=== PATIENT | female | born 1975 | race American Indian/Alaskan Native ===

== ENCOUNTER 2018-08-26 21:22 | Inpatient (IN) | payer BC ==
[2018-08-26 22:22] VITALS: BMI 23.5
[2018-08-26 23:21] LABS: BASO % 0.6 % (0.0-2.0); EOS % 0.8 % (0.0-4.0); HEMOGLOBIN 11.3 g/dL (12.0-16.0); LYMPH # 1.3 K/uL (1.0-4.3); LYMPH % 25.9 % (20.0-40.0); MEAN CELL VOLUME 78.6 fl (81.0-99.0); MEAN CORPUSCULAR HEMOGLOBIN 25.3 pg (27.0-31.0); MEAN CORPUSCULAR HGB CONC 32.2 g/dL (33.0-37.0); MEAN PLATELET VOLUME 8.8 fl (7.2-11.7); MONO # 0.7 K/uL (0.0-0.8); NEUT % 58.7 % (50.0-75.0); NRBC % 0.1 % (0.0-0.0); RBC 4.45 Mil/uL (3.80-5.20); RED CELL DISTRIBUTION WIDTH 14.4 % (11.5-14.5); WHITE BLOOD COUNT 5.2 K/uL (4.8-10.8)
[2018-08-26 23:26] LABS: INR 1.2; PROTHROMBIN TIME 13.4 Seconds (9.8-13.1)
[2018-08-26] MEDS ORDERED: Lactated Ringer's 1,000 ML IV STA (23:26)
[2018-08-26 23:33] LABS: PARTIAL THROMBOPLASTIN TIME 30.7 Seconds (25.6-37.1)
[2018-08-26 23:37] LABS: ALB/GLOB RATIO 1.4 (1.0-2.1); ALBUMIN 4.4 g/dL (3.5-5.0); ALT/SGPT 21 U/L (9-52); AST/SGOT 22 U/L (14-36); BLOOD UREA NITROGEN 13 mg/dl (7-17); CALCIUM 8.8 mg/dL (8.4-10.2); GFR NON-AFRICAN AMERICAN > 60
[2018-08-26 23:45] LABS: LIPASE 3063 U/L (23-300)
--- NOTE | 2018-08-26 23:59 | ED PDOC ---
HPI: Abdomen Time Seen by Provider: 08/26/18 22:44 Chief Complaint (Nursing): Abdominal Pain Chief Complaint (Provider): abdominal pain History Per: Patient History/Exam Limitations: no limitations Onset/Duration Of Symptoms: Days (x1 week), Worse Since (onset) Current Symptoms Are (Timing): Constant Location Of Pain/Discomfort: Epigastric Associated Symptoms: denies: Nausea, Vomiting, Diarrhea, Constipation, Urinary Symptoms Additional Complaint(s): Annamarie Johnson is a 43 year old female, with no significant past medical history, who presents to the emergency department complaining of a constant abdominal pain ongoing for a week. Patient describes pain as epigastric, non- radiating and worsening since onset. She was seen at [facility] today, she had blood work done and an ultrasound was performed. Patient was called and was told to go to the ER for abnormal blood work and ultrasound. Blood work demonstrated elevated Lipase of 717 and Amylase of 296 but otherwise normal LFTs, also a mild anemia but no leukocytosis. Ultrasound demonstrated a mild dilatation of the pancreal duct and recommend MRCP. Patient reports taking Omeprazole today but pain has been the same. She denies any fever, chills, nausea, vomit, diarrhea, constipation, urinary symptoms or other medical complaints. PMD: None provided. Past Medical History Reviewed: Historical Data, Nursing Documentation, Vital Signs Vital Signs: Last Vital Signs Temp 99.0 F 08/26/18 22:21 Pulse 91 H 08/26/18 22:21 Resp 16 08/26/18 22:21 BP 129/90 08/26/18 22:21 Pulse Ox 99 08/26/18 22:21 Primary Care Provider: Doctor,Conversion - Medical History PMH: No Chronic Diseases - Surgical History Surgical History: No Surg Hx - Family History Family History: States: Unknown Family Hx - Social History Current smoker - smoking cessation education provided: No Alcohol: Other (x2 per year) Drugs: Denies - Allergies Allergies/Adverse Reactions: Allergies Allergy/AdvReac Type Severity Reaction Status Date / Time shrimp Allergy RASH Verified 08/26/18 22:20 Review of Systems ROS Statement: Except As Marked, All Systems Reviewed And Found Negative Gastrointestinal: Positive for: Abdominal Pain. Negative for: Nausea, Vomiting, Diarrhea, Constipation Genitourinary Female: Negative for: Dysuria, Frequency, Incontinence Physical Exam - Reviewed Nursing Documentation Reviewed: Yes Vital Signs Reviewed: Yes - Physical Exam Appears: Positive for: Non-toxic, In Acute Distress (mild painful) Head Exam: Positive for: ATRAUMATIC, NORMAL INSPECTION, NORMOCEPHALIC Skin: Positive for: Normal Color, Warm, Dry Eye Exam: Positive for: Normal appearance, EOMI, PERRL Neck: Positive for: Normal, Painless ROM Gastrointestinal/Abdominal: Positive for: Soft, Tenderness (epigastric tenderness to palpation). Negative for: Mass, Distended, Guarding, Rebound Extremity: Positive for: Normal ROM Neurological/Psych: Positive for: Awake, Alert, Normal Tone, Oriented - Laboratory Results Result Diagrams: 08/27/18 11:20 08/27/18 11:20 Lab Results: PT 13.4 Seconds (9.8-13.1) H 08/26/18 23:17 INR 1.2 08/26/18 23:17 APTT 30.7 Seconds (25.6-37.1) 08/26/18 23:17 Total Bilirubin 0.4 mg/dl (0.2-1.3) 08/26/18 23:17 AST 22 U/L (14-36) 08/26/18 23:17 ALT 21 U/L (9-52) 08/26/18 23:17 Alkaline Phosphatase 46 U/L (38-126) 08/26/18 23:17 Total Protein 7.5 G/DL (6.3-8.2) 08/26/18 23:17 Albumin 4.4 g/dL (3.5-5.0) 08/26/18 23:17 Globulin 3.1 gm/dL (2.2-3.9) 08/26/18 23:17 Albumin/Globulin Ratio 1.4 (1.0-2.1) 08/26/18 23:17 Lipase 3063 U/L (23-300) H 08/26/18 23:17 - ECG O2 Sat by Pulse Oximetry: 99 (RA) Pulse Ox Interpretation: Normal Medical Decision Making Medical Decision Making: Time: 22:44 Initial Impression: Pancreatitis Initial Plan: --CMP --Lact Acid, Plasma --LDH --Lipase --Urine dipstick --CBC w/ differential --PTT --PT --MRCP and ABD w/wo contrast [MRI] --Lactated Ringer's 1,000 ml IV 150 mls/hr --Reevaluation 23:00 -Discussed case with Dr. Churchill, GI section hand helper, who recommends aggressive IV fluid hydration, repeat labs, PO status and MRCP for the morning when he will come see patient. -Discussed with Dr. Candelario, medical services, for hospitalization and plan of case. Scribe Attestation: Documented by Vikki Randall, acting as a scribe for Cecelia Tong MD. Provider Scribe Attestation: All medical record entries made by the Scribe were at my direction and personally dictated by me. I have reviewed the chart and agree that the record accurately reflects my personal performance of the history, physical exam, medical decision making, and the department course for this patient. I have also personally directed, reviewed, and agree with the discharge instructions and disposition. Disposition - Clinical Impression Clinical Impression: Pancreatitis, acute Counseled Patient/Family Regarding: Studies Performed, Diagnosis - Disposition Disposition Time: 23:00 Condition: FAIR - Pt Status Changed To: Hospital Disposition Of: Observation - POA Present On Arrival: None
[2018-08-27] MEDS: Lactated Ringer's 1,000 ML IV SCH ×3 (06:44→20:37)
[2018-08-27] MEDS ORDERED: Gadodiamide 287 MG/ML VIAL (15ML) IV ONE (07:25)
[2018-08-27] MEDS ORDERED: Sodium Chloride 0.9% 50 ML IV ONE (07:25)
[2018-08-27] MEDS: Enoxaparin 40 mg Syringe SC SCH (09:23)
[2018-08-27] MEDS ORDERED: Barium Sulfate Susp 2.1% w/v, 2.0% w/w 450 mL Bottle PO ONE ×3 (12:26→12:48)
[2018-08-27 12:39] LABS: HEMOGLOBIN 11.4 g/dL (12.0-16.0); MEAN CELL VOLUME 78.1 fl (81.0-99.0); MEAN CORPUSCULAR HEMOGLOBIN 25.6 pg (27.0-31.0); MEAN CORPUSCULAR HGB CONC 32.7 g/dL (33.0-37.0); RBC 4.46 Mil/uL (3.80-5.20); RED CELL DISTRIBUTION WIDTH 14.3 % (11.5-14.5); WHITE BLOOD COUNT 5.2 K/uL (4.8-10.8)
[2018-08-27 12:51] LABS: ALB/GLOB RATIO 1.4 (1.0-2.1); ALBUMIN 4.3 g/dL (3.5-5.0); ALT/SGPT 19 U/L (9-52); AMYLASE 265 U/L (30-110); AST/SGOT 20 U/L (14-36); BLOOD UREA NITROGEN 7 mg/dl (7-17); GFR NON-AFRICAN AMERICAN > 60; HDL CHOLESTEROL 49 MG/DL (30-70); LIPASE 1818 U/L (23-300)
[2018-08-27 12:59] LABS: LDL CHOLESTEROL 75 mg/dL (0-129)
[2018-08-27 13:17] LABS: T3 0.978 nmol/L (1.49-2.60)
--- NOTE | 2018-08-27 16:33 | CT ---
Date of service: 08/27/2018 PROCEDURE: CT Abdomen and Pelvis with contrast HISTORY: pancreatitis COMPARISON: None. TECHNIQUE: Oral contrast only. Radiation dose: Total exam DLP = <inf_radiation_dlp> mGy-cm. This CT exam was performed using one or more of the following dose reduction techniques: Automated exposure control, adjustment of the mA and/or kV according to patient size, and/or use of iterative reconstruction technique. FINDINGS: LOWER THORAX: Unremarkable. LIVER: Unremarkable. No gross lesion or ductal dilatation. GALLBLADDER AND BILE DUCTS: Unremarkable. PANCREAS: Edematous pancreas poorly delineated from adjacent stomach and small bowel secondary to Betty of abdominal fat. Nondiagnostic study in the assessment necrotizing pancreatitis-or intravenous contrast was not administered. SPLEEN: Unremarkable. ADRENALS: Unremarkable. No mass. KIDNEYS AND URETERS: Unremarkable. No hydronephrosis. No solid mass. VASCULATURE: Unremarkable. No aortic aneurysm. No atherosclerotic calcification or mural plaque present. BOWEL: Unremarkable. No obstruction. No gross mural thickening. APPENDIX: A normal appendix is visualized in it's entirety. PERITONEUM: Trace fluid identified in the cul-de-sac. No free air. LYMPH NODES: Unremarkable. No enlarged lymph nodes. BLADDER: Unremarkable. REPRODUCTIVE: Enlarged anteverted uterus. BONES: No acute fracture. OTHER FINDINGS: None. IMPRESSION: Diffusely edematous pancreas. Limitations of the current examination: Paucity of intra-abdominal/retroperitoneal fat and the absence of intravenous contrast precludes meaningful assessment of the pancreas for necrotizing pancreatitis or 2 accurately evaluate the extent of these edematous changes
--- NOTE | 2018-08-27 19:26 | CON ---
DATE: 08/27/2018 HISTORY OF PRESENT ILLNESS: This is a very pleasant 43-year-old woman who presented to the emergency room yesterday complaining of severe progressive epigastric pain and discomfort since last Wednesday. She said she had never experienced anything like this in the past. It was not associated with any nausea, vomiting, fever or chills but it became progressively worse while she was on a business trip in [place], [place]. She arrived yesterday, came right to the emergency room complaining of this pain and discomfort. She had been seen in an outpatient setting where they had done an ultrasound which showed prominent pancreatic duct perhaps mildly dilated, otherwise an unremarkable ultrasound. She showed me the report on her phone. She also had lab work done as an outpatient which were unremarkable except for an elevated lipase level. She was admitted with a working diagnosis of pancreatitis. Overnight, she was kept n.p.o. She was started on lactated Ringers 150 mL an hour and this morning, she felt somewhat better. She did receive some pain medicine about three hours ago when I examined her, although she states she feels better than she had been. She had been constipated this week. MEDICATIONS: She was on no medications at home. ALLERGIES: SHE IS ALLERGIC TO SHRIMP. PAST MEDICAL HISTORY: Unremarkable. PAST SURGICAL HISTORY: Unremarkable. FAMILY HISTORY: Her mother gives a history of having had some type of pancreatic disease years ago. Family history is otherwise unremarkable. SOCIAL HISTORY: She denies any alcohol, tobacco, or drug use. PHYSICAL EXAMINATION: GENERAL: She is a well-developed, well-nourished black woman, awake, alert, and oriented x3, in no acute distress presently. She is nontoxic appearing. VITAL SIGNS: Stable. ABDOMEN: Soft with good bowel sounds. It is nontender to deep palpation nor distended. She states if I had tried to examine her yesterday in that manner, she would have been having severe pain and discomfort, so this is an improvement. LABORATORY DATA: Her laboratories here in the hospital today are all unremarkable except for a lipase which is reported as being 3063. The ultrasound is as per the HPI. IMPRESSION AND PLAN: A 43-year-old black woman presents with a case of pancreatitis of unclear etiology as she has no alcohol history and no known history of gallstones. Recent ultrasound was unremarkable in that regards. We had ordered an MRCP for today; however, because of her claustrophobia, it was unable to be done and she is resistant to do that again. I offered to premedicate her but she seems very anxious and nervous about trying to do it and prefers not to do it. I wanted to order a CAT scan of the abdomen and pelvis with p.o. and IV contrast to evaluate the pancreatic duct to find any abnormalities; however, SHE IS ALLERGIC TO SHRIMP. Therefore, at this point in time, we will simply continue with the present care, order the CAT scan of the abdomen and pelvis with only oral contrast, hopefully with pancreatic protocol, to get a good look at the pancreas as best as possible and then follow along with her. Repeat the lipase in the morning as well. If the lipase has improved and she is clinically improved, then perhaps we do not have to pursue the MRCP and this would be an idiopathic type of pancreatitis. If , however, she continues to deteriorate, we might have to premedicate her and get that MRCP to look for any underlying abnormalities. Certainly, the possibility includes pancreas divisum as a possible underlying cause of this pancreatitis and her abdominal pain, but we will follow along with you. Alonzo Churchill MD
--- NOTE | 2018-08-27 19:48 | HP ---
CHIEF COMPLAINT: Abdominal pain. HISTORY OF PRESENT ILLNESS: This is a 43-year-old female without significant past medical history, who was having abdominal pain for about one-week for which the patient went to an urgent care center and had some blood test done which resulted in lipase of 717 and amylase of 296, so the patient was sent to emergency room and was admitted for further management. REVIEW OF SYSTEMS: At this time is positive for abdominal pain. Review of system otherwise is negative for headache, dizziness, syncope, loss of consciousness, chest pain, shortness of breath, nausea, vomiting, diarrhea, constipation, anemia, joint or extremity pain. Review of systems of all other organ system is unremarkable. PAST MEDICAL HISTORY: Unremarkable. PAST SURGICAL HISTORY: Unremarkable. PERSONAL HISTORY: The patient is currently nonsmoker, nondrinker. No substance abuse. MEDICATIONS: The patient is not on any medications. ALLERGIES: THE PATIENT IS NOT ALLERGIC TO ANY MEDICATION, BUT HE IS ALLERGIC TO SHRIMP. FAMILY HISTORY: Noncontributory. PHYSICAL EXAMINATION: GENERAL: A well-built, well-nourished 43-year-old female in no acute distress. VITAL SIGNS: Temperature afebrile, pulse 71, respirations 20, blood pressure 108/72, saturation 98%. HEENT: Pupils are reacting to light. No JVD. No thyromegaly. No lymphadenopathy. No nystagmus. Normocephalic, atraumatic scalp. HEART: S1 and S2, normal and regular. No significant murmur, gallop, or rub is heard. LUNGS: Shows good bilateral air exchange. No rales or rhonchi. ABDOMEN: Soft, nontender. The patient has mild generalized tenderness more so in epigastric, but no sign of acute abdomen. No guarding. No rigidity. No rebound. Bowel sounds are present, normal. EXTREMITIES: No edema. No calf swelling. No tenderness. No acute ischemia. CENTRAL NERVOUS SYSTEM: Essentially unchanged and there is no sign of any acute gross focal motor or sensory neurological deficit. DIAGNOSTIC DATA: Available diagnostic data reviewed. WBC 5.2, hemoglobin 11.3, hematocrit 35, platelets 260. Sodium 133, potassium 3.9, chloride 101, bicarb 27, BUN 13, and creatinine 0.6. SMA-12 is unremarkable. Lipase level is 3063. ADMITTING IMPRESSION: Acute pancreatitis. PLAN: As ordered. Case and plan discussed with the patient. Jose M Candelario MD [facility] # [id number]
[2018-08-28] MEDS: Lactated Ringer's 1,000 ML IV SCH ×5 (02:05→21:58)
[2018-08-28 06:56] LABS: HEMOGLOBIN 10.8 g/dL (12.0-16.0); MEAN CELL VOLUME 78.1 fl (81.0-99.0); MEAN CORPUSCULAR HEMOGLOBIN 25.5 pg (27.0-31.0); MEAN CORPUSCULAR HGB CONC 32.6 g/dL (33.0-37.0); RBC 4.23 Mil/uL (3.80-5.20); RED CELL DISTRIBUTION WIDTH 14.3 % (11.5-14.5); WHITE BLOOD COUNT 4.1 K/uL (4.8-10.8)
[2018-08-28 07:05] LABS: ALB/GLOB RATIO 1.3 (1.0-2.1); ALBUMIN 3.9 g/dL (3.5-5.0); ALT/SGPT 20 U/L (9-52); AST/SGOT 27 U/L (14-36); BLOOD UREA NITROGEN 6 mg/dl (7-17); CALCIUM 8.7 mg/dL (8.4-10.2); GFR NON-AFRICAN AMERICAN > 60
[2018-08-28] MEDS: Enoxaparin 40 mg Syringe SC SCH (08:54)
--- NOTE | 2018-08-28 10:31 | PN ---
DATE: 08/28/2018 SUBJECTIVE: The patient seen and examined. Interim events noted. Consults noted and appreciated. Gastroenterology followup and intervention noted and appreciated. Case was discussed with medicaid nurse yesterday. MR/CT was not being able to be done because of the patient's claustrophobic condition. The patient feels better. Abdominal pain still persists, but it seems to be improving. No chest pain. No shortness of breath. No sign of acute complication. PHYSICAL EXAMINATION: GENERAL: The patient is in no acute distress. VITAL SIGNS: Stable. HEART: S1, S2 normal, regular. LUNGS: Good bilateral air exchange. ABDOMEN: Remains soft and nontender. No organomegaly. No fluid. Bowel sounds are present and normal. No sign of acute abdomen. No guarding. No rigidity. No rebound. EXTREMITIES: No edema. No calf swelling. No tenderness. No acute ischemia. CENTRAL NERVOUS SYSTEM: Essentially unchanged. DIAGNOSTIC DATA: Available diagnostic data reviewed. Lipase level is decreasing, but still elevated at 2000. ASSESSMENT AND PLAN: Overall, the patient seems to be medically improving. Plan as ordered. The patient is scheduled for CAT scan of abdomen today. Jose M Candelario MD
[2018-08-29] MEDS: Lactated Ringer's 1,000 ML IV SCH (04:43)
[2018-08-29 06:46] LABS: HEMOGLOBIN 10.7 g/dL (12.0-16.0); MEAN CELL VOLUME 77.7 fl (81.0-99.0); MEAN CORPUSCULAR HEMOGLOBIN 25.4 pg (27.0-31.0); MEAN CORPUSCULAR HGB CONC 32.7 g/dL (33.0-37.0); RBC 4.21 Mil/uL (3.80-5.20); RED CELL DISTRIBUTION WIDTH 14.2 % (11.5-14.5); WHITE BLOOD COUNT 3.6 K/uL (4.8-10.8)
[2018-08-29 07:01] LABS: ALB/GLOB RATIO 1.3 (1.0-2.1); ALBUMIN 3.8 g/dL (3.5-5.0); ALT/SGPT 20 U/L (9-52); AMYLASE 176 U/L (30-110); AST/SGOT 17 U/L (14-36); BLOOD UREA NITROGEN 6 mg/dl (7-17); CALCIUM 8.9 mg/dL (8.4-10.2); GFR NON-AFRICAN AMERICAN > 60; LIPASE 1267 U/L (23-300)
[2018-08-29 07:46] VITALS: BP 112/69; PULSE 71; RESP 20; TEMP 98.3; O2SAT 98
[2018-08-29] MEDS: Enoxaparin 40 mg Syringe SC SCH (09:15)
[2018-08-29] MEDS ORDERED: Pantoprazole 20 mg EC Tab PO SCH (09:45)
--- NOTE | 2018-08-29 14:35 | PN ---
DATE: 08/29/2018 SUBJECTIVE: The patient seen and examined. Interim events noted. The patient remains in regular medical floor. Feels much better. Abdominal pain present but much improved. No chest pain. No shortness of breath. The patient did not start eating food yet because of the fear. PHYSICAL EXAMINATION: GENERAL: The patient is in no acute distress. VITAL SIGNS: Stable. HEART: S1 and S2, normal, regular. LUNGS: Good bilateral air exchange. ABDOMEN: Soft, nontender. No sign of acute abdomen. No guarding, no rigidity. No rebound. Bowel sounds are present and normal. EXTREMITIES: No edema. No calf swelling, no tenderness, no acute ischemia. CENTRAL NERVOUS SYSTEM: Essentially unchanged. DIAGNOSTIC DATA: Available diagnostic data reviewed. Lipase level is 1200. ASSESSMENT AND PLAN: Overall, the patient is slowly improving. Plan as ordered. Jose M Candelario MD
== END 2018-08-29 12:41 | disposition home or self-care (01) | DRG 440 ==
LOC: H.ER 21:22 → OBSVTOIN 23:27 → H.ERHOLD 23:27 → H.MEDSURG1 08-27 00:39
PROVIDERS: ADMIT Internal Medicine; ATTEND Internal Medicine
DX: K85.90 Acute pancreatitis without necrosis or infection, unspecified (principal); Z91.013 Allergy to seafood; D64.9 Anemia, unspecified; F40.240 Claustrophobia; K59.00 Constipation, unspecified; R74.8 Abnormal levels of other serum enzymes